=== PATIENT | female | born 1990 | race Caucasian/White ===

== ENCOUNTER 2017-04-15 10:00 | Emergency (ER) | payer BC ==
[~2017-04-15] VITALS: Ht 154.9 cm; Wt 63.5 kg
[2017-04-15 10:10] VITALS: BP 141/80
[2017-04-15] MEDS ORDERED: HYDR30CR61 TP (10:39)
--- NOTE | 2017-04-15 10:41 | PHYS DOC ---
Past Medical History Past Medical History: No Pertinent History Past Surgical History: No Surgical History Alcohol Use: Rarely Drug Use: Marijuana Adult General Chief Complaint Chief Complaint: ABSCESS HPI HPI Patient is a 26 year old female with no significant history who presents today with "a cyst" on her rectum that she noted 2 days ago when she wiped herself. Patient states she had a trace pink color, on her toilet paper. Patient denies any history of constipation. Denies any history of hemorrhoids. Denies any pain to the area. Denies any danyel hematuria. Denies any nausea vomiting. Denies any abdominal pain. Review of Systems Review of Systems Constitutional: Denies fever or chills [] Eyes: Denies change in visual acuity, redness, or eye pain [] HENT: Denies nasal congestion or sore throat [] Respiratory: Denies cough or shortness of breath [] Cardiovascular: No additional information not addressed in HPI [] GI: Rectal cyst : Denies dysuria or hematuria [] Musculoskeletal: Denies back pain or joint pain [] Integument: Denies rash or skin lesions [] Neurologic: Denies headache, focal weakness or sensory changes [] Allergies Allergies Allergies Coded Allergies Type Severity Reaction Last Updated Verified No Known Drug Allergies 04/15/17 No Physical Exam Physical Exam Constitutional: Well developed, well nourished, no acute distress, non-toxic appearance. [] HENT: Normocephalic, atraumatic, bilateral external ears normal, oropharynx moist, no oral exudates, nose normal. [] Eyes: PERRLA, EOMI, conjunctiva normal, no discharge. [] Neck: Normal range of motion, no tenderness, supple, no stridor. [] Cardiovascular:Heart rate regular rhythm, no murmur [] Lungs & Thorax: Bilateral breath sounds clear to auscultation [] Abdomen: Bowel sounds normal, soft, no tenderness, no masses, no pulsatile masses. [] Rectal area with a tiny piece size hemorrhoid that is nonthrombosed. Patient refused full rectal exam. Skin: Warm, dry, no erythema, no rash. [] Back: No tenderness, no CVA tenderness. [] Extremities: No tenderness, no cyanosis, no clubbing, ROM intact, no edema. [] Neurologic: Alert and oriented X 3, normal motor function, normal sensory function, no focal deficits noted. [] Psychologic: Affect normal, judgement normal, mood normal. [] Current Patient Data Vital Signs Vital Signs Date Time Temp Pulse Resp B/P (MAP) Pulse Ox O2 Delivery O2 Flow Rate FiO2 04/15/17 10:10 98.7 115 18 99 Room Air 98.7 EKG EKG [] Radiology/Procedures Radiology/Procedures [] Course & Med Decision Making Course & Med Decision Making Pertinent Labs and Imaging studies reviewed. (See chart for details) Patient is in the ED with a nonthrombosed rectal hemorrhoid. Talked to patient about the correlation of constipation with hemorrhoids. Recommended over-the- counter medications including MiraLAX. Recommended Anusol suppositories/creams. Recommended sitz baths. Follow-up with primary care doctor in 1-2 weeks. She is provided return precautions and discharged in stable condition. Dragon Disclaimer Dragon Disclaimer This electronic medical record was generated, in whole or in part, using a voice recognition dictation system. Departure Departure Impression: Primary Impression: Hemorrhoids Disposition: 01 HOME, SELF-CARE Condition: STABLE Referrals: TRAY LEROY MD follow up in one week Patient Instructions: Hemorrhoids, [id number] Additional Instructions: You were seen for hemorrhoids. Sometimes this caused by constipation. Try and ensure you not constipated. You can take MiraLAX to prevent constipation. You can use the provided prescription cream as needed for hemorrhoids. You can also continue doing warm baths/ sitz baths. Follow-up with your doctor or the doctor provided in one week. Please return to the emergency room at any point you have bloody stools, abdominal pain nausea vomiting or any other concerning symptoms. Scripts Hydrocortisone (ANUSOL-HC) 30 Gm Cream..g. 1 LULÚ TP BID, #30 GM 1 Refill Prov: BERT YOUNG JAEL 04/15/17 Problem Qualifiers Primary Impression: Hemorrhoids Hemorrhoid type: first degree Qualified Codes: K64.0 - First degree hemorrhoids BERT YOUNG JAEL Apr 15, 2017 10:41
== END 2017-04-15 10:46 | disposition home or self-care (01) ==
LOC: ER 10:00
DX: K64.0 First degree hemorrhoids (principal)
CPT/HCPCS: 99283